=== PATIENT | male | born 1960 | race Caucasian/White ===

== ENCOUNTER 2017-05-14 | Emergency (ER) | payer OTHER, SELFPAY ==
--- NOTE | 2017-05-14 18:20 | EDPHYS ---
Physician Documentation [facility] Name: Colby Schuster Age: 57 yrs Sex: Male : 1960 Arrival Date: 05/14/2017 Time: 14:53 Bed 17 Private MD: ED Physician Bharath Stroud HPI: 05/14 17:09 This 57 yrs old Male presents to ER via EMS with complaints of Altered Mental rn Status. 17:09 The patient presents with agitation. Onset: The symptoms/episode began/occurred at an rn unknown time. Possible causes: unknown. Current symptoms: In the emergency department the patient's symptoms have improved. The patient has experienced similar episodes in the past. Per patient, went to nurse practitioner today for medication refill, noted to be agitated, instead of script, they called glass presser/EMS, brought here for evaluation. The clinic called here prior to arrival and said patient was acting agitated, unsure if taking his medication, not acting like he has in past, and sent here for further care because could not calm him down there. Patient denies suicidal/homicidal ideation/hallucinations. . Historical: - Allergies: 15:13 Unable to obtain; hb - Home Meds: 15:13 Unable to obtain [Active]; hb - PMHx: 15:13 Unable to obtain; hb - PSHx: 15:13 Unable to obtain; hb - Immunization history:: Adult Immunizations unknown. - Social history:: Smoking status: unknown. - Family history:: not pertinent. - Hospitalizations: : No recent hospitalization is reported. ROS: 17:09 Constitutional: Negative for fever, chills, and weight loss, Eyes: Negative for injury, rn pain, redness, and discharge, Neck: Negative for injury, pain, and swelling, Cardiovascular: Negative for chest pain, palpitations, and edema, Respiratory: Negative for shortness of breath, cough, wheezing, and pleuritic chest pain, Abdomen/GI: Negative for abdominal pain, nausea, vomiting, diarrhea, and constipation, Back: Negative for injury and pain, MS/Extremity: Negative for injury and deformity, Skin: Negative for injury, rash, and discoloration, Neuro: Negative for headache, weakness, numbness, tingling, and seizure, Psych: Negative for suicide ideation, homicidal ideation, and hallucinations. Exam: 17:09 Constitutional: This is a well developed, well nourished patient who is awake, alert, rn appears agitated but redirectible and cooperative Head/Face: Normocephalic, atraumatic. Eyes: Pupils equal round and reactive to light, extra-ocular motions intact. Lids and lashes normal. Conjunctiva and sclera are non-icteric and not injected. Cornea within normal limits. Periorbital areas with no swelling, redness, or edema. Neck: Trachea midline, no thyromegaly or masses palpated, and no cervical lymphadenopathy. Supple, full range of motion without nuchal rigidity, or vertebral point tenderness. No Meningismus. Cardiovascular: tachycardic, regular Respiratory: Lungs have equal breath sounds bilaterally, clear to auscultation, No increased work of breathing, no retractions or nasal flaring. Abdomen/GI: Soft, non-tender, with normal bowel sounds. No distension or tympany. No guarding or rebound. No evidence of tenderness throughout. Skin: Warm, dry,no evidence of cellulitis. MS/ Extremity: Pulses equal, no cyanosis. Neurovascular intact. Full, normal range of motion. Equal circumference. Neuro: Awake and alert, GCS 15, oriented to person, place, time, and situation. Cranial nerves II-XII grossly intact. Motor strength 5/5 in all extremities. Sensory grossly intact. Cerebellar exam normal. Vital Signs: 14:54 BP 140 / 101; Pulse 115; Resp 18; Temp 98.1; Pulse Ox 99% on R/A; hb MDM: 15:20 Patient medically screened. rn 17:31 ED course: Family arrived, states they are concerned for his well being, sister has rn legal guardianship, is requesting that he be sedated, and transferred against his will to the medical center. Patient is currently not combative, is behaving without danger to our staff, told her we had no justification for chemical restraint at this point. Asked her to talk to patient to make him voluntary and willing to cooperate with medical clearance as in order for transfer would need labs and blood work which patient refusing to give at this point.. 17:37 ED course: Family did not talk to patient and left, multiple attempts to call them to rn return for further discussion. No call back thus far. . 18:02 ED course: Pt got up, ran out of emergency department, no warrant, family not here, not rn followed due to safety concern of staff and up to this point still denied suicidal/homicidal ideation/hallucinations. Calling sister to notify and notifying police although unsure if police can detain patient at this moment without criminal intent or misconduct. . 18:06 ED course: Pt is not under a [place] [facility] [place] [facility] warrant at this time due to still denying rn suicidal/homicidal ideation, does not express thoughts or ideas that he is danger to himself or others, family nowhere to be found, have been called numerous times, we do not have enough to legally detain this patient against his will. Police notified, will try and bring him back, family called again, no answer, will try again.. 18:16 Differential Diagnosis: psychiatric disorder, shane, agitation. Data reviewed: vital rn signs, nurses notes, and as a result, I will. Refusal of service: The patient/guardian displays adequate decision making capability and despite a detailed discussion of alternatives, benefits, risks, and consequences refuses: all lab tests, Medications, IV. ED course: Notified sister of situation, glass presser looking for patient.. 18:16 ED course: When contacted, family did not express to us that they were planning on rn returning to ER. . 18:26 ED course: Pt sitting outside, offered to reevaluate him, patient declines, is smoking rn his cigar, also offered patient risperdal prescription, patient declines, got upset and states will get it somewhere else.. Administered Medications: No medications were administered Disposition: 05/14/17 18:19 Patient left the facility after being seen by provider. - Patient left due to unknown. Signatures: Bharath Stroud MD MD rn Hall, Patricia, RN RN Melisa Moe RN RN
--- NOTE | 2017-05-14 18:20 | ER ---
Nurse's Notes [facility] Name: Colby Schuster Age: 57 yrs Sex: Male : 1960 Arrival Date: 05/14/2017 Time: 14:53 Bed 17 Private MD: Diagnosis: Presentation: 05/14 14:54 Presenting complaint: EMS states: Pt was seeking help in a immunohematologist's office, hb asking for his psych meds, became aggressive and ran of the building. On scene pt was uncooperative and aggressive. PD escort present. Hx schizophrenia, psychosis. Transition of care: patient was not received from another setting of care. Onset of symptoms is unknown. Care prior to arrival: None. 14:54 Method Of Arrival: EMS: [facility] hb 14:54 Acuity: NIXON 2 hb 14:54 Note BP 150/90, HR 122, BGL 98. hb Triage Assessment: 14:57 General: Appears in no apparent distress. unkempt, Behavior is agitated, anxious, hb uncooperative. Pain: Denies pain. Neuro: Level of Consciousness is awake, alert, obeys commands, confused, Oriented to person, place. Cardiovascular: Capillary refill < 3 seconds Patient's skin is warm and dry. Respiratory: Airway is patent Respiratory effort is even, unlabored, Respiratory pattern is regular, symmetrical. Historical: - Allergies: 15:13 Unable to obtain; hb - Home Meds: 15:13 Unable to obtain [Active]; hb - PMHx: 15:13 Unable to obtain; hb - PSHx: 15:13 Unable to obtain; hb - Immunization history:: Adult Immunizations unknown. - Social history:: Smoking status: unknown. - Family history:: not pertinent. - Hospitalizations: : No recent hospitalization is reported. Screenin:13 Abuse screen: unable to obtain. Nutritional screening: unable to obtain. Tuberculosis hb screening: unable to obtain. Fall Risk Total Brand Fall Scale indicates High Risk Score (45 or more points). Fall prevention measures have been instituted. Side Rails Up X 2 Placed Close to Nursing Station 1:1 Attendant Assigned Frequent Obs/Assessments Occuring As available patient and family educated on Fall Prevention Program and Strategies. Assessment: 14:59 General: Denies Pt refusing to answer questions re: history, medications, allergies, hb stated "Get the fuck out of here I do not want to be here and I am not fucking talking to you bitch." Charge Nurse Piper, SARAH notified. Sitter in place for pt safety. 15:32 Reassessment: Dr. Stroud discussing POC with patients sister at this time. ss 16:30 Reassessment: Patient appears in no apparent distress at this time. No changes from hb previously documented assessment. Patient and/or family updated on plan of care and expected duration. Pain level reassessed. 17:19 Reassessment: Patient appears in no apparent distress at this time. Patient and/or ph family updated on plan of care and expected duration. Pain level reassessed. Pt sleeping, respirations even and unlabored, no orders at this time, will continue to monitor. 18:00 Reassessment: Pt walked out of room carrying belongings bag, when pt was questioned if ph he needed assistance he did not answer and quickly left emergency department, no IV in place, charge nurse notified. 18:11 Reassessment: Speaking with Rubina Thornton, sister of patient who reports that no ss one plans to come back up to ER at this time. Sister is aware that PD has been called and patient has eloped from ER room. Vital Signs: 14:54 BP 140 / 101; Pulse 115; Resp 18; Temp 98.1; Pulse Ox 99% on R/A; hb ED Course: 14:53 Patient arrived in ED. hb 14:56 Triage completed. hb 15:01 Arm band placed on right wrist. hb 15:02 Patient has correct armband on for positive identification. Bed in low position. Side hb rails up X2. Adult w/ patient. 15:20 Bharath Stroud MD is Attending Physician. rn 17:18 Andressa Del Rosario, SARAH is Primary Nurse. ph 18:09 [facility] notified that patient ran out of er. bd 18:34 No provider procedures requiring assistance completed. Patient did not have IV access ph during this emergency room visit. Administered Medications: No medications were administered Outcome: 18:38 Patient left the ED. ph 18:38 Eloped from patient exam room, after seeing physician ph 18:38 Condition: stable Signatures: Lakeshia Jones bd Bharath Stroud MD MD rn Smirch, Shelby, RN RN Andressa Del Rosario RN RN Melisa Durbin RN RN hb Corrections: (The following items were deleted from the chart) 14:57 14:54 Presenting complaint: EMS states: Pt was seeking help in a immunohematologist's office, hb asking for his psych meds, became aggressive and ran of the building. On scene pt was uncooperative and aggressive. PD escort present. hb 14:58 14:57 Derm: Skin is hb hb 15:02 15:01 Arm band placed on left wrist. hb 15:12 14:59 General: Denies Pt refusing to answer questions re: history, medications, hb allergies, stated "Get the fuck out of here I do not want to be here and I am not fucking talking to you bitch.". hb
== END 2017-05-14 18:38 | disposition left against medical advice (07) ==
CPT/HCPCS: 99283

== ENCOUNTER 2017-05-17 | Emergency (ER) | payer OTHER, SELFPAY ==
--- NOTE | 2017-05-17 13:58 | EDPHYS ---
Physician Documentation [facility] Name: Colby Schuster Age: 57 yrs Sex: Male : 1960 Arrival Date: 05/17/2017 Time: 12:24 Bed 9 Private MD: ED Physician Alexandr Rothman HPI: 05/17 13:52 This 57 yrs old Male presents to ER via Ambulatory with complaints of cp medication refill. 13:52 The patient presents to the emergency department requesting refill(s) for: Risperdal 4 cp mg. Historical: - Allergies: 12:39 Unable to obtain; hj - Home Meds: 12:39 Unable to obtain [Active]; hj - PMHx: 12:39 Unable to obtain; hj - PSHx: 12:39 Unable to obtain; hj - Immunization history:: Adult Immunizations unknown. - Social history:: Smoking status: . ROS: 13:53 Eyes: Negative for injury, pain, redness, and discharge. cp 13:53 Constitutional: Negative for body aches, chills, fever, poor PO intake. 13:53 Cardiovascular: Negative for chest pain. 13:53 Respiratory: Negative for cough, shortness of breath, wheezing. 13:53 Abdomen/GI: Negative for abdominal pain, vomiting, diarrhea, constipation. 13:53 Psych: Negative for auditory hallucinations, visual hallucinations, homicidal ideation, suicide gesture, suicidal ideation. 13:53 All other systems are negative. Exam: 13:55 Head/Face: Normocephalic, atraumatic. cp 13:55 Constitutional: The patient appears in no acute distress, alert, awake, well developed, well nourished, unkempt. 13:55 Eyes: Periorbital structures: appear normal, Conjunctiva: normal, no exudate, no injection, Lids and lashes: appear normal, bilaterally. 13:55 ENT: External ear(s): are unremarkable, Nose: is normal, Mouth: is normal. 13:55 Chest/axilla: Inspection: normal. 13:55 Cardiovascular: Rate: tachycardic. 13:55 Respiratory: the patient does not display signs of respiratory distress, Respirations: normal, no use of accessory muscles, no retractions, no splinting, no tachypnea. 13:55 Abdomen/GI: Exam negative for discomfort, distension, guarding, Inspection: abdomen appears normal. 13:55 Neuro: Orientation: to person, place \T\ time. Mentation: lucid, able to follow commands, cp Cerebellar function: is grossly normal, Motor: moves all fours, strength is normal. Vital Signs: 12:40 BP 117 / 91; Pulse 118; Resp 18; Temp 97.4(TE); Pulse Ox 98% on R/A; Weight 58.97 kg; hj Height 5 ft. 11 in. (180.34 cm); 12:40 Body Mass Index 18.13 (58.97 kg, 180.34 cm) hj MDM: 13:44 Patient medically screened. cp 13:56 Data reviewed: vital signs, nurses notes, and as a result, I will discharge patient. cp Administered Medications: No medications were administered Disposition: 15:51 Co-signature as Attending Physician, Alexandr Rothman MD I agree with the assessment and [facility] plan of care. Disposition: 05/17/17 13:58 Discharged to Home. Impression: Persons encountering health services for other counseling and medical advice, not elsewhere classified - Medication Refill. - Condition is Stable. - Prescriptions for Risperdal 4 mg Oral tablet - take 1 tablet by ORAL route once daily; 30 tablet. - Medication Reconciliation Form, Thank You Letter, Antibiotic Education, Prescription Opioid Use form. - Follow up: Private Physician; When: 2 - 3 days; Reason: further refill of medications. - Problem is an ongoing problem. - Symptoms are unchanged. Signatures: Alexandr Rothman MD MD cha Williams, Irene, RN RN Torsten Arceo RN RN hj Page, Corey, PA PA cp
--- NOTE | 2017-05-17 13:58 | ER ---
Nurse's Notes [facility] Name: Colby Schuster Age: 57 yrs Sex: Male : 1960 Arrival Date: 05/17/2017 Time: 12:24 Bed 9 Private MD: Diagnosis: Persons encountering health services for other counseling and medical advice, not elsewhere classified-Medication Refill Presentation: 05/17 12:37 Presenting complaint: Patient states: i need Rx of my Respirdal and Haldol; now i have hj an abscess that looks like a staph infection;. Transition of care: patient was not received from another setting of care. Onset of symptoms was May 17, 2017. Care prior to arrival: None. 12:37 Method Of Arrival: Ambulatory hj 12:37 Acuity: NIXON 4 hj Triage Assessment: 12:39 General: Appears in no apparent distress. uncomfortable, Behavior is calm, cooperative, hj appropriate for age. Pain: Complains of pain in left knee and dorsum of left foot. Historical: - Allergies: 12:39 Unable to obtain; hj - Home Meds: 12:39 Unable to obtain [Active]; hj - PMHx: 12:39 Unable to obtain; hj - PSHx: 12:39 Unable to obtain; hj - Immunization history:: Adult Immunizations unknown. - Social history:: Smoking status: . Screenin:12 Abuse screen: Denies threats or abuse. Denies injuries from another. Nutritional iw screening: No deficits noted. Tuberculosis screening: No symptoms or risk factors identified. Fall Risk None identified. Assessment: 13:45 General: Appears in no apparent distress. Behavior is cooperative. General: pt states iw he needs a refill on his Risperdal because he is moving to [place] in a couple weeks . Pain: Denies pain. Neuro: Level of Consciousness is awake, alert, obeys commands, Oriented to person, place, time, situation, Moves all extremities. Full function. Cardiovascular: Patient's skin is warm and dry. Respiratory: Respiratory effort is even, unlabored, Respiratory pattern is regular. GI: No signs and/or symptoms were reported involving the gastrointestinal system. Derm: Skin is pink, warm \T\ dry. pt denies abscess or rash or skin problems. Musculoskeletal: Range of motion: intact in all extremities. 14:12 Reassessment: Patient appears in no apparent distress at this time. Patient and/or iw family updated on plan of care and expected duration. Pain level reassessed. Vital Signs: 12:40 BP 117 / 91; Pulse 118; Resp 18; Temp 97.4(TE); Pulse Ox 98% on R/A; Weight 58.97 kg; hj Height 5 ft. 11 in. (180.34 cm); 12:40 Body Mass Index 18.13 (58.97 kg, 180.34 cm) ED Course: 12:24 Patient arrived in ED. mr 12:39 Triage completed. hj 12:39 Arm band placed on right wrist. hj 13:38 Fatou Crowell, RN is Primary Nurse. iw 13:41 Alexandr Delgado PA is PHCP. cp 13:41 Alexandr Rothman MD is Attending Physician. cp 13:43 Alexandr Delgado PA is PHCP. cp 13:44 Alexandr Rothman MD is Attending Physician. cp 14:10 No provider procedures requiring assistance completed. Patient did not have IV access iw during this emergency room visit. 14:12 Patient has correct armband on for positive identification. iw Administered Medications: No medications were administered Outcome: 13:58 Discharge ordered by MD. cp 14:10 Discharged to home ambulatory. iw 14:10 Condition: good 14:10 Discharge instructions given to patient, Instructed on discharge instructions, follow up and referral plans. medication usage, Demonstrated understanding of instructions, follow-up care, medications, Prescriptions given X 1. 14:12 Patient left the ED. iw Signatures: Keira Chaudhary mr Fatou Crowell, RN SARAH iw Torsten Arceo RN RN Alexandr Delgado PA PA cp Corrections: (The following items were deleted from the chart) 12:42 12:40 Pulse 118bpm; Resp 18bpm; Pulse Ox 98% RA; Temp 97.4F Temporal; 58.97 kg; Height hj 5 ft. 11 in.; BMI: 18.1; hj
== END 2017-05-17 14:12 | disposition home or self-care (01) ==
DX: Z76.0 Encounter for issue of repeat prescription (principal)
CPT/HCPCS: 99282